=== PATIENT | male | born 1990 | race Two or more races ===

== ENCOUNTER 2018-05-07 15:55 | Inpatient (IN) | payer SELFPAY ==
[~2018-05-07] VITALS: Ht 170.2 cm; Wt 81.6 kg
[2018-05-07] MEDS ORDERED: SODIUM CHLORIDE 0.9% 1,000 ML IV ONE ×2 (16:44→18:30)
[2018-05-07] MEDS ORDERED: ONDANSETRON HCL 4MG/2ML VIAL IV STA (16:44)
[2018-05-07 17:29] LABS: BASOPHILS % 0.3 % (0.0-2.0); EOSINOPHILS % 0.1 % (0.0-5.0); HEMATOCRIT. 43.6 % (42.0-52.0); HEMOGLOBIN. 14.7 g/dL (14.0-18.0); LYMPHOCYTES % 10.4 % (20.0-50.0); MEAN CORPUSCULAR HEMOGLOBIN 28.2 pg (28.0-32.0); MEAN CORPUSCULAR VOLUME 83.6 fL (80.0-94.0); MEAN PLATELET VOLUME 8.1 fl (7.4-10.4); MONOCYTES % 4.8 % (2.0-8.0); NEUTROPHILS % 84.4 % (40.0-76.0); PLATELET 260 x1000/uL (130-400); RED BLOOD CELL COUNT 5.22 mill/uL (4.7-6.1); RED CELL DISTRIBUTION WIDTH 13.7 % (11.6-14.6)
[2018-05-07 17:35] LABS: PROTHROMBIN TIME 10.7 sec (9.4-11.6)
[2018-05-07 17:36] LABS: CHLORIDE 103 mEq/L (98-107)
[2018-05-07 17:40] LABS: ETHANOL BLOOD < 10 mg/dL
[2018-05-07 17:45] LABS: CARBAMAZEPINE < 0.5 ug/mL (4-12)
[2018-05-07 17:55] LABS: CREATINE KINASE 1152 IU/L (39-308)
[2018-05-07 19:23] LABS: CLARITY URINE CLEAR (CLEAR); COLOR URINE YELLOW (YELLOW); KETONES URINE 1+ (NEGATIVE); LEUKOCYTE ESTERASE URINE NEGATIVE (NEGATIVE); NITRITE URINE NEGATIVE (NEGATIVE); OCCULT BLOOD URINE NEGATIVE (NEGATIVE); PROTEIN URINE TRACE (NEGATIVE); UROBILINOGEN URINE 0.2 E.U./dL (0.2-1.0)
[2018-05-07 19:45] LABS: *AMPHETAMINES SCREEN URINE NEGATIVE (NEGATIVE); CANNABINOID URINE SCREEN PRESUMTIVE POSITIVE (NEGATIVE); OPIATES URINE SCREEN NEGATIVE (NEGATIVE); PHENCYCLIDINE URINE SCREEN NEGATIVE (NEGATIVE)
[2018-05-07 19:47] LABS: *BARBITURATES SCREEN URINE NEGATIVE (NEGATIVE); *BENZODIAZEPINES SCREEN URINE NEGATIVE (NEGATIVE); *COCAINE SCREEN URINE NEGATIVE (NEGATIVE); METHADONE URINE SCREEN NEGATIVE (NEGATIVE)
[2018-05-07 20:35] LABS: CARBAMAZEPINE < 0.5 ug/mL (4-12)
[2018-05-07] MEDS ORDERED: SODIUM CHLORIDE 0.9% 1,000 ML IV SCH (23:17)
[2018-05-07] MEDS ORDERED: ONDANSETRON HCL 4MG/2ML VIAL IV PRN (23:30)
[2018-05-07] MEDS ORDERED: ACETAMINOPHEN 325MG TABLET PO PRN (23:30)
[2018-05-07] MEDS ORDERED: MAGNESIUM/ALUMINUM HYDROXIDE/SIMETHICONE 30ML UDC PO PRN (23:30)
[2018-05-07] MEDS ORDERED: DIPHENHYDRAMINE 50MG/ML VIAL IV PRN (23:30)
[2018-05-08 05:46] LABS: BASOPHILS % 0.3 % (0.0-2.0); HEMATOCRIT. 41.2 % (42.0-52.0); HEMOGLOBIN. 13.7 g/dL (14.0-18.0); LYMPHOCYTES % 22.6 % (20.0-50.0); MEAN CORPUSCULAR HEMOGLOBIN 27.9 pg (28.0-32.0); MEAN CORPUSCULAR VOLUME 83.6 fL (80.0-94.0); MEAN PLATELET VOLUME 8.3 fl (7.4-10.4); MONOCYTES % 8.5 % (2.0-8.0); NEUTROPHILS % 67.6 % (40.0-76.0); PLATELET 230 x1000/uL (130-400); RED BLOOD CELL COUNT 4.93 mill/uL (4.7-6.1); RED CELL DISTRIBUTION WIDTH 13.9 % (11.6-14.6)
[2018-05-08 05:51] LABS: CHLORIDE 107 mEq/L (98-107)
[2018-05-08 05:58] LABS: PHOSPHORUS 2.6 mg/dL (2.5-4.9)
[2018-05-08 06:01] LABS: CREATINE KINASE 571 IU/L (39-308)
[2018-05-08] MEDS ORDERED: MVI, ADULT NO.1 10 ML, FOLIC ACID 1 MG, THIAMINE HCL 100 MG in SODIUM CHLORIDE 0.9% 1,0... IV SCH ×4 (07:52)
[2018-05-08] MEDS ORDERED: ONDANSETRON 4MG ODT PO PRN (12:45)
[2018-05-08 12:48] VITALS: BP 147/77
[2018-05-08 16:00] VITALS: BP 132/93
[2018-05-08 17:53] VITALS: BP 121/72
[2018-05-08 19:25] VITALS: BP 143/83
== END 2018-05-08 20:00 | disposition home or self-care (01) | DRG 812 ==
LOC: ER 15:55 → EDBEDREQ 18:48 → EDBEDREQSVC 18:48 → EDBEDREQTM 18:48 → 8WST 05-08 07:29 → EDBEDREQSVC 05-08 10:02 → ENRESERV 05-08 11:11
PROVIDERS: ADMIT Internal Medicine; ATTEND Internal Medicine
DX: T42.1X1A Poisoning by iminostilbenes, accidental (unintentional), initial encounter (principal); G92 Toxic encephalopathy; R74.0 Nonspecific elevation of levels of transaminase and lactic acid dehydrogenase [LDH]; F15.10 Other stimulant abuse, uncomplicated; M62.82 Rhabdomyolysis; F12.90 Cannabis use, unspecified, uncomplicated; Y92.89 Other specified places as the place of occurrence of the external cause
CPT/HCPCS: 36415; 70450; 71045; 80053; 80076; 80156; 80305; 80307; 80329; 81003; 82550; 83605; 83690; 83735; 84100; 84484; 85025; 85610; 93005; 96365; 99291; G0482; J2405; J3411; J3490; J7030